=== PATIENT | female | born 1985 | race Caucasian/White ===

== ENCOUNTER 2020-03-18 11:59 | Emergency (ER) | payer SELFPAY ==
[2020-03-18 12:01] VITALS: BP 147/86; PULSE 72; RESP 16; TEMP 36.7; O2SAT 98; BMI 22.4
[2020-03-18 12:15] LABS: Bacteria 0 SEEN /hpf (None Seen); Mucous, Urine 0 SEEN /hpf (<or=2+); White Blood Cells 0 SEEN /hpf (0-5)
[2020-03-18 12:17] LABS: Color, Urine Yellow (Yellow); Glucose, Dipstick Normal (Normal); Ketone-Dipstick Negative (Negative); Leukocyte Esterase-Dipstick Negative /ul (Negative); Nitrite-Dipstick Negative (Negative); Occult Blood-Urine 150 /ul (Negative); Protein-Dipstick Negative (Negative); Specific Gravity, Urine 1.015 (1.002-1.030); Urine Bilirubin Dipstick Negative (Negative); Urine Clarity Clear (Clear); Urine Urobilinogen Normal (Normal)
[2020-03-18 12:20] LABS: Internal QC Validated? YES +Cl - CLEAR BKGD; Pregnancy, Urine Negative Negative
--- NOTE | 2020-03-18 12:22 | CT_ITS ---
STUDY: CT ABDOMEN AND PELVIS WITHOUT CONTRAST REASON FOR EXAM: Female, 35 years old. Left flank pain. History of kidney stones RADIATION DOSAGE (If Supplied By Facility): CTDIvol = ( 6.23 ) mGy, DLP = ( 304.85 ) mGycm TECHNIQUE: Transaxial images were obtained from the dome of the diaphragm to the symphysis pubis without oral contrast, and without intravenous contrast. Sagittal and coronal images were reconstructed. Individualized dose optimization techniques were used for this CT. COMPARISON: None. FINDINGS: Evaluation of the abdominal viscera is limited in the absence of intravenous contrast. The visualized lung bases are clear. The visualized portions of the heart and pericardium are within normal limits. The patient is status post cholecystectomy. The liver demonstrates an unremarkable unenhanced appearance. The spleen is normal in size. The pancreas demonstrates an unremarkable unenhanced appearance. The adrenal glands are within normal limits. There are bilateral subcentimeter nonobstructing renal collecting system stones, measuring up to 2 mm. There is a 2 mm stone at the left ureterovesicular junction with mild left hydroureteronephrosis. There are no right ureteral stones. There is no right hydronephrosis. Normal visualized stomach. There is no bowel obstruction or inflammation. The appendix is visualized and appears normal. The aorta is normal in caliber. There is no abdominal or pelvic free air, free fluid, fluid collection or lymphadenopathy. There are no destructive osseous lesions. CT/Abdomen/Pelvis without Cont IMPRESSION: 2 mm stone at the left ureterovesicular junction with mild left hydroureteronephrosis. Electronically Signed: Cheng Rodriguez, at 13:21 EDT Tel , Service support ,
[2020-03-18 12:31] LABS: Red Blood Cells-Urine 5-10 SEEN /hpf (0-5); Squamous Epithelial Cells - UA 0-5 SEEN /hpf (5-10)
[2020-03-18] MEDS: Ondansetron 4 MG/2 ML Vial IV (12:35)
[2020-03-18 12:36] LABS: Absolute Lymphocyte Count 1.55 X10^3/uL (0.83-4.51); Absolute Neutrophil Count 7.2 X10^3/uL (2.0-7.7); Basophil# 0.04 X10^3/uL; Basophil% 0.4 % (0-1); Eosinophil# 0.12 X10^3/uL; Eosinophils% 1.2 % (0-5); Hematocrit 41.3 % (37-47); Hemoglobin 13.8 g/dL (12.0-15.0); Lymphocyte # 1.55 X10^3/ul (4.0); Lymphocyte % 16.1 % (19-41); Mean Corp Hgb Conc 33.4 g/dL (32-36); Mean Corpuscular Hgb 32.3 pg (27.0-32.0); Mean Corpuscular Volume 96.7 fL (81-99); Mean Platelet Vol. 9.2 fl (6.2-12.0); Monocyte# 0.69 X10^3/uL; Monocyte% 7.2 % (0-10); NRBC Flagged by Analyzer 0 % (0-5); Neutrophil # 7.19 X10^3/uL (2.7-7.7); Neutrophil % 74.7 % (47-70); Platelet Count 283 K/mm3 (150-450); RBC Distribution Width CV 11.9 % (11.6-14.6); RBC Distribution Width SD 42.1 fl (35.1-43.9); Red Blood Count 4.27 M/mm3 (4.2-5.4); White Blood Count 9.6 K/mm3 (4.4-11.0)
[2020-03-18] MEDS: Ketorolac 30 MG/ML Syringe IV (12:37)
[2020-03-18 12:50] LABS: Anion Gap 6 (5-15); BUN 14 mg/dL (7-18); BUN/Creat Ratio 15.8 RATIO (10-20); Calcium,Total 8.9 mg/dL (8.5-10.1); Chloride 108 mmol/L (98-107); Creatinine, Serum 0.89 mg/dL (0.55-1.02); EST Glomerular Filtration Rate 77 mL/min (>60); Est Glom Filt Rate - Afr Amer 94 mL/min (>60); Estimated Creatinine Clearance 80.15 ml/min; Glucose 106 mg/dL (74-106); Sodium Level 139 mmol/L (136-145)
--- NOTE | 2020-03-18 13:22 | ED.DCSUM_ITS ---
History of Present Illness Chief Complaint: Flank Pain Informant: Patient Onset: Today Narrative: She states this morning she has sudden onset of left lower abdominal pain rating to the left flank. She has had kidney stones before never required surgery.. She does note some dysuria. No fevers. She vomited. The pain is significantly better now than what it was at home but is still painful. Past Medical History - Allergies and Home Meds Allergies/Adverse Reactions: Allergies amoxicillin [Amoxicillin] Allergy (Verified 03/18/20 12:00) Hives hydromorphone HCl [From Dilaudid] Allergy (Verified 03/18/20 12:00) Hives morphine Allergy (Verified 03/18/20 12:00) Hives Penicillins [PCN] Allergy (Verified 03/18/20 12:00) Hives Primary Care Physician: Care Physician,No Primary [Primary Care Provider] - Smoking Status: Current every day smoker Review of Systems General: Denies: Chills, Fever, Sweats Eyes: Denies: Visual changes - bilaterally, Diplopia ENT: Denies: Rhinorrhea, Sore throat Cardiovascular: Denies: Chest pain, Palpitations Respiratory: Denies: Dyspnea, Cough, Dyspnea on exertion Gastrointestinal: Denies: Abdominal pain, Nausea, Vomiting, Diarrhea, Melena, Hematochezia Genitourinary: Denies: Dysuria, Hematuria, Frequency Musculoskeletal: Denies: Back pain, Extremity Pain Skin: Denies: Rash, Wounds Neurological: Denies: Headache, Weakness, Numbness Physical Exam Vital Signs/Narrative: Vital Signs Temp Pulse Resp BP Pulse Ox 03/18/20 12:01 98.1 F 72 16 147/86 H 98 Inital Vital Signs reviewed: Yes General: Well nourished, Well developed, No Acute Distress Head: Normocephalic, Atraumatic Eyes: Perrl, EOMI ENT: Moist mucous membranes, No rhinorrhea Neck: Supple, Nontender Cardiovascular: Regular rate, Regular rhythm, No murmurs Respiratory: No distress, CTA bilaterally, Chest nontender Abdomen: Soft, Nontender, Nondistended, Normal bowel sounds Back: Nontender, Normal Inspection Extremities: Nontender, No edema Skin: Normal color, No rash Neurological: Alert, Oriented x3, Cranial nerves II-XII grossly intact, Normal Strength, Normal Sensation Psychological: Normal affect, Normal Mood Diagnostic/Tx/Re-eval Clinical Impression(s) from Imaging Studies Abdomen/Pelvis CT 03/18/20 12:22 IMPRESSION: 2 mm stone at the left ureterovesicular junction with mild left hydroureteronephrosis. Electronically Signed: Cheng Rodriguez, at 13:21 EDT Tel , Service support , Laboratory Last Values WBC 9.6 K/mm3 (4.4-11.0) 03/18/20 12:30 RBC 4.27 M/mm3 (4.2-5.4) 03/18/20 12:30 Hgb 13.8 g/dL (12.0-15.0) 03/18/20 12:30 Hct 41.3 % (37-47) 03/18/20 12:30 MCV 96.7 fL (81-99) 03/18/20 12:30 MCH 32.3 pg (27.0-32.0) H 03/18/20 12:30 MCHC 33.4 g/dL (32-36) 03/18/20 12:30 RDW Std Deviation 42.1 fl (35.1-43.9) 03/18/20 12:30 RDW Coeff of Anshul 11.9 % (11.6-14.6) 03/18/20 12:30 Plt Count 283 K/mm3 (150-450) 03/18/20 12:30 MPV 9.2 fl (6.2-12.0) 03/18/20 12:30 Immature Gran % (Auto) 0.400 % (0.0-0.9) 03/18/20 12:30 Neut % (Auto) 74.7 % (47-70) H 03/18/20 12:30 Lymph % (Auto) 16.1 % (19-41) L 03/18/20 12:30 [place] % (Auto) 7.2 % (0-10) 03/18/20 12:30 Eos % (Auto) 1.2 % (0-5) 03/18/20 12:30 Baso % (Auto) 0.4 % (0-1) 03/18/20 12:30 Absolute Neuts (auto) 7.2 X10^3/uL (2.0-7.7) 03/18/20 12:30 Absolute Lymphs (auto) 1.55 X10^3/uL (0.83-4.51) 03/18/20 12:30 Nucleated RBC % 0 % (0-5) 03/18/20 12:30 Sodium 139 mmol/L (136-145) 03/18/20 12:30 Potassium 4.0 mmol/L (3.5-5.1) 03/18/20 12:30 Chloride 108 mmol/L (98-107) H 03/18/20 12:30 Carbon Dioxide 25.0 mmol/L (21.0-32.0) 03/18/20 12:30 Anion Gap 6 (5-15) 03/18/20 12:30 BUN 14 mg/dL (7-18) 03/18/20 12:30 Creatinine 0.89 mg/dL (0.55-1.02) 03/18/20 12:30 Estim Creat Clear Calc 80.15 ml/min 03/18/20 12:30 Est GFR (MDRD) Af Amer 94 mL/min (>60) 03/18/20 12:30 Est GFR (MDRD) Non-Af 77 mL/min (>60) 03/18/20 12:30 BUN/Creatinine Ratio 15.8 RATIO (10-20) 03/18/20 12:30 Glucose 106 mg/dL (74-106) 03/18/20 12:30 Calcium 8.9 mg/dL (8.5-10.1) 03/18/20 12:30 Urine Color Yellow (Yellow) 03/18/20 12:08 Urine Clarity Clear (Clear) 03/18/20 12:08 Urine pH 6.0 (5.0 - 8.0) 03/18/20 12:08 Ur Specific [place] 1.015 (1.002-1.030) 03/18/20 12:08 Urine Protein Negative mg/dl (Negative) 03/18/20 12:08 Urine Glucose (UA) Normal mg/dl (Normal) 03/18/20 12:08 Urine Ketones Negative mg/dl (Negative) 03/18/20 12:08 Urine Occult Blood 150 /ul (Negative) H 03/18/20 12:08 Urine Nitrite Negative (Negative) 03/18/20 12:08 Urine Bilirubin Negative mg/dL (Negative) 03/18/20 12:08 Urine Urobilinogen Normal mg/dl (Normal) 03/18/20 12:08 Ur Leukocyte Esterase Negative /ul (Negative) 03/18/20 12:08 Urine RBC 5-10 SEEN /hpf (0-5) 03/18/20 12:08 Urine WBC 0 SEEN /hpf (0-5) 03/18/20 12:08 Ur Squamous Epith Cells 0-5 SEEN /hpf (5-10) 03/18/20 12:08 Urine Bacteria 0 SEEN /hpf (None Seen) 03/18/20 12:08 Urine Mucus 0 SEEN /hpf (<or=2+) 03/18/20 12:08 Urine Test Negative Negative 03/18/20 12:08 ED Disposition - Plan for ED Patient: Disposition: Home or Assisted Living Diagnosis: Left ureteral stone Instructions: ED Renal Stone w Colic Prescriptions: Hydrocodone Bitart/Apap 5-325 [[place] 5MG-325MG] 1 tab PO Q6H PRN PRN 3 Days #12 tab PRN Reason: Pain Prescription Printed Ondansetron [Zofran Odt] 4 mg PO Q8H PRN PRN #14 tab PRN Reason: Nausea Prescription Printed Referrals: Shabbir Madsen MD [STAFF PHYSICIAN] -
== END 2020-03-18 13:49 | disposition home or self-care (01) ==
PROVIDERS: Emergency Provider Emergency Medicine
DX: N13.2 Hydronephrosis with renal and ureteral calculous obstruction (principal); Z87.442 Personal history of urinary calculi; F17.200 Nicotine dependence, unspecified, uncomplicated
CPT/HCPCS: 74176; 80048; 81001; 81025; 85025; 96374; 96375; 99283; A4216; J2405

== ENCOUNTER 2020-03-26 15:23 | Emergency (ER) | payer SELFPAY ==
[2020-03-26 15:24] VITALS: BP 156/88; PULSE 90; RESP 17; TEMP 36.6; O2SAT 100; BMI 24.0
--- NOTE | 2020-03-26 15:37 | ED.VIS.GEN ---
History of Present Illness Chief Complaint: Eye Problem Informant: Patient Onset: Today Current Severity: Moderate Maximum Severity: Severe Narrative: Patient presents with burning sensation to both eyes. She states that she had previously used a solution that she got at the [employer] store for hard contact lenses. She realized this was the wrong solution and rinsed out the container that she stores her contacts in. She put her current pair contacts into the correct solution in the same container at 11 PM Friday evening. She took them out at 11 AM this morning, 36 hours later, and put them in her eyes. She had some burning to both eyes. She fell asleep for about an hour with her contacts in and when she woke up states that she had increased pain. She did take her contacts out but is had increasing burning to her eyes. She reports feeling that there is a cloud over each eye. - Past Medical History (1) Kidney stone Status: Chronic Past Medical History - Allergies and Home Meds Allergies/Adverse Reactions: Allergies amoxicillin [Amoxicillin] Allergy (Verified 03/26/20 15:24) Hives hydromorphone HCl [From Dilaudid] Allergy (Verified 03/26/20 15:24) Hives morphine Allergy (Verified 03/26/20 15:24) Hives Penicillins [PCN] Allergy (Verified 03/26/20 15:24) Hives Primary Care Physician: Care Physician,No Primary [Primary Care Provider] - Prior records reviewed: Yes Smoking Status: Current every day smoker Review of Systems General: Denies: Chills, Fever Eyes: Reports: Blurred Vision - bilaterally, - - Bilateral eye pain ENT: Denies: Bilateral ear pain Cardiovascular: Denies: Chest pain Respiratory: Denies: Dyspnea, Cough Gastrointestinal: Denies: Abdominal pain, Vomiting Musculoskeletal: Denies: Extremity Pain Skin: Denies: Rash Hematologic: Denies: Easy bruising, Easy bleeding Allergy: Denies: Uticaria Physical Exam Vital Signs/Narrative: Vital Signs Temp Pulse Resp BP Pulse Ox 03/26/20 15:24 97.8 F 90 17 156/88 H 100 Inital Vital Signs reviewed: Yes General: Well nourished, Well developed Head: Normocephalic, Atraumatic Eyes: - - Eyes are open in a darkened room. No significant conjunctival injection noted. Extraocular movements intact. ENT: Moist mucous membranes Cardiovascular: Tachycardia Respiratory: No distress, CTA bilaterally Abdomen: Soft, Nontender Skin: Normal color Neurological: Alert, Oriented x3 Psychological: Tearful, Agitated Diagnostic/Tx/Re-eval - Medical Decision Making Tetracaine drops were applied to both eyes. Eyes were irrigated with 500 cc of saline. 1 additional drop of tetracaine was applied after irrigation. Slit-lamp examination is performed. She does have a large abrasion over her left pupil. I do not see any ulcerations or abrasions on the right eye. I did have patient try to read a sign that was hanging in the room. She was unable to make out words with her right eye but was able to read with her left. I spoke with Dr. Lan, on-call for ophthalmology. He recommended antibiotic ointment for the left eye where the abrasion is noted. He will see the patient tomorrow morning for a full exam. ED Disposition - Plan for ED Patient: Disposition: Home or Assisted Living Diagnosis: Corneal abrasion Instructions: ED Corneal Abrasion Prescriptions: Hydrocodone Bitart/Apap 5-325 [[place] 5MG-325MG] 1 tablet PO Q6H PRN PRN 3 Days #10 tablet PRN Reason: Pain Transmission Status: Sent to [facility]30 Referrals: Jeff Beck MD [STAFF PHYSICIAN] - 1 Day
[2020-03-26] MEDS: Tetracaine 0.5% Ophthalmic Bottle 2 DRP EACH EYE (15:40)
[2020-03-26] MEDS: Fluorescein 1 MG STRIP 1 STRIP EACH EYE (16:38)
[2020-03-26] MEDS: HYDROcodone Bitartrate/Apap 5/325 Tablet PO (16:47)
== END 2020-03-26 16:51 | disposition home or self-care (01) ==
PROVIDERS: Emergency Provider Emergency Medicine
DX: H18.822 Corneal disorder due to contact lens, left eye (principal); F17.200 Nicotine dependence, unspecified, uncomplicated
CPT/HCPCS: 99284; J7040; A4216